=== PATIENT | female | born 2000 | race Caucasian/White ===

== ENCOUNTER 2022-03-14 09:52 | Emergency (ER) | payer OTHER, SELFPAY ==
[2022-03-14 10:05] VITALS: BP 107/63; PULSE 100; RESP 20; TEMP 36.6; O2SAT 99
--- NOTE | 2022-03-14 10:20 | ED.URI ---
HPI - URI/Sore Throat General Chief Complaint: Upper Respiratory Infection Stated Complaint: Sore Throat,Bilateral Ear Irritation,Rt Eye Irrita Time Seen by Provider: 03/14/22 10:09 Source: patient Mode of arrival: ambulatory Limitations: no limitations History of Present Illness HPI Narrative: Patient presents today complaining of a 2 day history of bilateral ear pain left greater than right, congestion COVID postnasal drip, cough, five-day history of sore throat, and right eye redness with green drainage since last night. Denies fever. She has been taking Tylenol and Mucinex without relief. 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 She is currently 6 months . Related Data Home Medications Medication Instructions Recorded Confirmed vits no.[id number]-ferrous fum 1 tablet PO DAILY 03/14/22 03/14/22 28 mg iron-folic acid 800 mcg tablet (Classic ) Allergies Allergy/AdvReac Type Severity Reaction Status Date / Time No Known Allergies Allergy Verified 03/14/22 09:55 Review of Systems Review of Systems: CONSTITUTIONAL: Denies body aches, fever, chills, or sweats. EYES: Denies visual changes. + right eye redness and drainage ENT: Denies rhinorrhea. + congestion, sore throat, bilateral ear pain CARDIOVASCULAR: Denies chest pain, palpitations, or edema. RESPIRATORY: Denies dyspnea.+ cough GASTROINTESTINAL: Denies abdominal pain, nausea, vomiting, or diarrhea. GENITOURINARY: Denies dysuria or hematuria. SKIN: Denies rash, itching, or wounds. MUSCULOSKELETAL: Denies back pain, joint pain, or myalgia. NEUROLOGIC: Denies headache, numbness, tingling, or weakness. PSYCH: Denies depression or anxiety. PMFSH Comments At time of signature, I have reviewed and agree with nursing past medical, surgical, social and family history unless otherwise noted. Please see nursing chart for further information. There is no relevant family history pertinent to the presenting complaint Exam Narrative: GENERAL: Well-appearing, well-nourished, and in no acute distress. HEAD: Normocephalic, atraumatic. EYES: EOMI. PERRL. Right eye redness and injected conjunctiva with increased tearing. No active purulent discharge. Slight swelling of the upper eyelid. Left eye normal. ENT: Mucous membranes pink and moist. Nares congested. No rhinorrhea. TMs normal bilaterally. Throat normal. Uvula midline. NECK: Normal AROM. Supple. No lymphadenopathy. CHEST: No respiratory distress. Clear to auscultation. HEART: Regular rate and rhythm. No murmur appreciated. Normal peripheral pulses. ABDOMEN: Gravid abdomen MUSCULOSKELETAL: No bony tenderness. EXTREMITIES: Normal range of motion. No edema. SKIN: Warm, dry, no rash. Capillary refill normal. Normal skin turgor. NEURO: No focal deficits. Alert and oriented x3. Gait steady. PSYCH: Normal affect. No signs of depression or anxiety. Course Course Level of Care: Express Care Visit Vital Signs Vital signs: Vital Signs Temperature 97.8 F 03/14/22 10:05 Pulse Rate 100 03/14/22 10:05 Respiratory Rate 20 03/14/22 10:05 Blood Pressure 107/63 03/14/22 10:05 Pulse Oximetry 99 03/14/22 10:05 Oxygen Delivery Room Air 03/14/22 10:05 Temperature 97.8 F 03/14/22 10:05 Pulse Rate 100 03/14/22 10:05 Respiratory Rate 20 03/14/22 10:05 Blood Pressure 107/63 03/14/22 10:05 Pulse Oximetry 99 03/14/22 10:05 Oxygen Delivery Room Air 03/14/22 10:05 Reviewed MDM - URI/Sore Throat MDM Narrative Medical decision making narrative: Will treat patient for bacterial conjunctivitis. Remainder of symptoms are likely viral. Differential Diagnosis Differential diagnosis: Likely upper respiratory infection, otitis media, viral infection, bronchitis and other (Conjunctivitis) Critical Care Time Critical Care Time Critical Care Time: No Discharge Plan Discharge Clinical Impression: Acute bacterial conjunctivitis of right eye
== END 2022-03-14 10:28 | disposition home or self-care (01) ==
PROVIDERS: Emergency Provider Nurse Practitioner
DX: O99.891 Other specified diseases and conditions complicating pregnancy (principal); Z3A.00 Weeks of gestation of pregnancy not specified; H10.31 Unspecified acute conjunctivitis, right eye; O99.512 Diseases of the respiratory system complicating pregnancy, second trimester; Z3A.24 24 weeks gestation of pregnancy; J06.9 Acute upper respiratory infection, unspecified
CPT/HCPCS: 99213; G0463

== ENCOUNTER 2024-02-15 13:38 | Emergency (ER) | payer OTHER, SELFPAY ==
[2024-02-15 13:55] VITALS: BP 113/69; PULSE 97; RESP 18; TEMP 36.7; O2SAT 100
[2024-02-15 14:09] LABS: EDUAAPPEAR Cloudy; EDUABILI Negative (Negative); EDUABLOOD 3+ (Negative); EDUACOLOR1 Orange; EDUAGLUCOSE Trace (Negative); EDUAKETONE Negative (Negative); EDUALEUKO 3+ (Negative); EDUANITRATE Positive (Negative); EDUAPROTEIN 3+ (Negative); EDUASPGRAVITY 1.015
--- NOTE | 2024-02-15 14:18 | ED.FEMALEGU ---
HPI - Female Genitourinary General Chief complaint: Urogenital-Female Stated complaint: uti/body aches/ blood in urine Time Seen by Provider: 02/15/24 14:18 Source: patient, RN notes reviewed and old records reviewed Mode of arrival: ambulatory Limitations: no limitations History of Present Illness HPI Narrative: patient presents with complaints of dysuria, hematuria, body aches. She reports that symptoms were present upon awakening this morning. She has been taking azo for her symptoms with minimal relief. She denies any fever, chills, sweats. She denies any injury or trauma. She voices no other concerns or complaints Related Data Allergies Allergy/AdvReac Type Severity Reaction Status Date / Time No Known Allergies Allergy Verified 02/15/24 14:05 Review of Systems Review of Systems: All systems reviewed & are unremarkable except as noted in HPI and below Constitutional: Constitutional: Reports no additional constitutional complaints and Reports body ache(s) ENT: Reports system reviewed and no additional complaints, except as documented Cardiovascular: Cardiovascular: Reports no additional cardiovascular complaints Respiratory: Respiratory: Reports no additional respiratory complaints Gastrointestinal: Gastrointestinal: Reports no additional gastrointestinal complaints Genitourinary: Genitourinary: Reports hematuria and Reports urinary urgency PMFSH Comments At the time of my signature, I reviewed and agree with the nursing past medical, surgical, social, and family history. There is no relevant family history pertinent to the patient complaint. Exam Const: General: cooperative, no acute distress, alert and awake Orientation/consciousness: oriented to person, oriented to place and oriented to time HENMT: Head: normal to inspection Resp: Effort & Inspection: normal respiratory effort and able to speak in complete sentences Auscultation: clear to auscultation bilaterally, no crackles, no rales, no rhonchi and no wheezes Cardio: Palpation: normal PMI Rate: regular rate Rhythm: regular rhythm Heart sounds: S1 normal heart sound present and S2 normal heart sound present : General: Yes no CVA tenderness Neuro: General: oriented to person, oriented to place and oriented to time Cranial nerves: Yes CN's II-XII intact bilaterally Psych: Appearance: grossly normal Thought process: Normal thought process present Insight: Good insight present (Psych) Judgement: Good judgement present (Psych) Course Course Level of Care: Express Care Visit Vital Signs Vital signs: Vital Signs Temperature 98.1 F 02/15/24 13:55 Pulse Rate 97 02/15/24 13:55 Respiratory Rate 18 02/15/24 13:55 Blood Pressure 113/69 02/15/24 13:55 Pulse Oximetry 100 02/15/24 13:55 Oxygen Delivery Room Air 02/15/24 13:55 Temperature 98.1 F 02/15/24 13:55 Pulse Rate 97 02/15/24 13:55 Respiratory Rate 18 02/15/24 13:55 Blood Pressure 113/69 02/15/24 13:55 Pulse Oximetry 100 02/15/24 13:55 Oxygen Delivery Room Air 02/15/24 13:55 Reviewed MDM - Female Genitourinary MDM Narrative Medical decision making narrative: history, exam, labs consistent with UTI. Culture pending. Start Macrobid. Patient nontoxic appearing, stable for discharge home on p.o. antibiotic therapy. Discharge instructions reviewed with patient, as well as provided in writing per nursing staff. The instructions also include specific and strict return/GO TO THE ER as well as f/u information. All questions have been answered, and the patient deny any further questions with discharge and discharge plan. Some parts of this dictation were generated by voice recognition software and may contain typographical and/or grammatical inaccuracies. Differential Diagnosis Differential diagnosis: Likely urinary tract infection and other (Cystitis, dysuria) Medical Records Attestation: I reviewed the patient's medical records. Lab Data Attestation: I reviewed the patient's lab results. Labs: Lab Results 02/15/24 Range/Units 14:07 POC Urine Color [place] POC Urine Clarity Cloudy POC Urine pH 6.0 POC Ur Specif [place] 1.015 POC Urine Protein 3+ (Negative) POC Ur Glucose (UA) Trace (Negative) POC Urine Ketones Negative (Negative) POC Urine Blood 3+ (Negative) POC Urine Nitrite Positive (Negative) POC Urine Bilirubin Negative (Negative) POC Urine Urobilinogen 1.0 POC U Leukocyte Esteras 3+ (Negative) Discharge Plan Discharge Clinical Impression: Urinary tract infection Qualifiers: Urinary tract infection type: site unspecified Hematuria presence: with hematuria Qualified Code(s): N39.0 - Urinary tract infection, site not specified Patient Disposition: Home, Self-Care Condition: Stable Instructions: Antibiotic Form, Urinary Tract Infection in Women (ED) Additional Instructions: take medications as prescribed. Follow with primary care provider. Emergency department for new or worse symptoms Patient Language: Emirati Prescriptions: New nitrofurantoin monohyd/m-cryst [Macrobid] 100 mg capsule 100 mg PO Q12H 5 Days Qty: 10 0RF Rx Instructions: must administer with a meal/food Follow-up/Referrals: PHYSICIAN,CHIEF OF HARBOR PATROL [Primary Care Provider] - Time of Disposition: 14:24
== END 2024-02-15 14:29 | disposition home or self-care (01) ==
PROVIDERS: Emergency Provider Nurse Practitioner Family; Referring Provider Family Medicine
DX: N39.0 Urinary tract infection, site not specified (principal)
CPT/HCPCS: 81003; 87077; 87086; 87186; 99213; G0463

== ENCOUNTER 2024-06-23 09:48 | Emergency (ER) | payer OTHER, SELFPAY ==
--- OUTSIDE RECORDS SUMMARY | 2024-06-23 09:51 | XMS_ITS | Clinical Summary ---
Author Organization [facility] Address [address] [place] [address] Phone Care Team Providers Care Foreign Food Cook Specialty Name Role Phone Maeve Madden MD Primary Care Provider Unava ilable Allergies No known active allergies Medications vit-iron fumarate-fa (CAROLINE ) 28 mg iron- 800 mcg Tablet TAKE 1 TABLET BY MOUTH ONCE DAILY 10/24/2019 Active cyclobenzaprine (FLEXERIL) 5 mg Tablet Take 1 Tablet (5 mg) by mouth daily. 5 Tablet 04/17/2023 10:49 AM SOX ANALYST 04/17/2023 Active Active Problems Problem Noted Date Diagnosed Date contractions 09/01/2023 growth restriction antepartum 05/17/2023 Supervision of high-risk , second trime ster 05/17/2023 Abdominal pain during in second trimes ter 04/17/2023 Vaginitis during in second trimester 0 04/17/2023 [facility] 09/10 - Licha Cordova - 06/20/2022 Influenza A 01/15/2022 Nausea/vomiting in 01/15/2022 Ocular migraine Resolved Problems Problem Noted Date Diagnosed Date Resolved Date Elevated blood pressure affe cting in third trimester, antepartum Threatened labor at term Encounters Date Type Department Care Team Description 06/11/2024 External Device Data [facility] Provider, Abstract 04/10/2024 External Device Data [facility] Provider, Abstract from Last 3 Months Immunizations Immunization Administration Dates Next Due (ADACEL/BOOSTRIX)(10 YR UP) TDAP VACCINE, 0.5ML, IM 05/05/2022,10/10/2020 Family History Medical History Relation Name Comments Diabetes Father Healthy Mother Healthy Son 1 Healthy Son 2 Relation Name Status Comments Father Alive Mother Alive Son 1 Alive Son 2 Alive Social History Tobacco Use Types Packs/Day Years Used Date Smoking Tobacco: Never Smokeless Tobacco: Never Tobacco Cessation:Counseling Given: Not Answered Alcohol Use Standard Drinks/Week Comments Not Currently 0 (1 standard drink = 0.6 oz pur e alcohol) Feeling Safe Answer Date Recorded Within the last year, have y ou been afraid of your partner or ex-partner? No 12/15/2021 Within the last year, have y ou been humiliated or emotionally abused in other ways by your partner or ex-partner? No Within the last year, have y ou been kicked, hit, slapped, or otherwise physically hurt by your partner or ex-partner? No 12/15/2021 Within the last year, have y ou been raped or forced to have any kind of sexual activity by your partner or ex-partner? No 12/15/2021 Social Connections Answer Date Recorded In a typical week, how many times do you talk on the telephone with family, friends, or neighbors? Not on file 12/16/19 How often do you get together with friends or re latives? Not on file 12/15/2021 How often do you attend pentecostal or mosque serv ices? Never 12/15/2021 Do you belong to any clubs o r organizations such as pentecostal groups, unions, fraternal or athletic groups, or school groups? No 12/15/2021 How often do you attend meet ings of the clubs or organizations you belong to? Never 12/15/2021 Are you , , di vorced, , never , or living with a partner? 12/15/2021 Food Insecurity Answer Date Recorded In the past 12 months, have you worried that your food would run out before you had money to buy more? Never true 12/15/2021 In the past 12 months, did y ou run out of food and didn't have money to buy more? Never true 12/15/2021 Transportation Needs Answer Date Record ed In the past 12 months, has l ack of transportation kept you from medical appointments or from getting medications? Yes 11/21 In the past 12 months, has l ack of transportation kept you from meetings, work, or from getting things needed for daily living? Yes 12/15/2021 Housing Stability Answer Date Recorded In the last 12 months, was t here a time when you were not able to pay the mortgage or rent on time? No 12/15/2021 (RETIRED) In the last 12 months, how many places have you lived? 1 12/15/2021 (RETIRED) In the last 12 mon ths, was there a time when you did not have a steady place to sleep or slept in a [place] [facility] [place] (including now)? No 12/15/2021 Feeling Safe Answer Date Recorded Are you in a relationship wi th someone who hurts you emotionally and/or physically? Patient unable to answer 09/11/2023 Comments No Sex and Gender Information Value Date Recorded Sex Assigned at Female 02/07/2023 11:19 AM SOX ANALYST Legal Sex Female 2:10 PM CDT Gender Identity Female 02/07/2023 11:19 AM SOX ANALYST Sexual Orientation Not on file Last Filed Vital Signs Vital Sign Reading Time Taken Comments Blood Pressure 114/66 10/30/2023 2:14 PM CDT Pulse 72 09/14/2023 6:33 AM CDT Temperature 36.6 C (97.8 F) 09/14/2023 6:33 AM CDT Respiratory Rate 18 09/14/2023 6:33 AM CDT Oxygen Saturation 98% 09/11/2023 8:40 PM CDT Inhaled Oxygen Concentration - - Weight 70.2 kg (154 lb 12.8 oz) 10/30/2023 2:14 PM CDT Height 160 cm (5' 3 ) 09/11/2023 9:59 AM CDT Body Mass Index 27.42 09/11/2023 9:59 AM CDT Plan of Treatment Health Maintenance Due Date Last Done Comments HPV VACCINES (1 - 3-dose series) 2013 HEPATITIS B VACCINES (1 of 3 - 19+ 3-dose series) 2017 HPV/Cotest (21-29) 07/07/2019 INFLUENZA VACCINE (#1) 2023 CERVICAL CANCER SCREENING 02/16/2024 PAP SMEAR 02/16/2024 02/15/2021 DTAP/TDAP/TD VACCINES (3 - T d or Tdap) 05/05/2032 05/05/2022, 10/10/2020 CHLAMYDIA SCREENING (ANNUAL) 11-24 YEARS Discontinued 08/14/2023, 11/29/2021, 02/27/2020 Procedures Procedure Name Priority Date/Time Associated Diagnosis Comments GC/CHLAMYDIA, UROGENITAL Stat 08/14/2023 11:41 AM CDT CERV/VAG CYTO AGE BASED SCREEN PAP W CT/NG, TRICH Routine 02/15/2021 1:35 PM SOX ANALYST Screening for cervical cancer STD exposure from Last 3 Months or Most Recently Relevant to Health Maintenance Results * GC/CHLAMYDIA, UROGENITAL (08/14/2023 11:41 AM CDT) CHLAMYDIA DNA AMPLIFICATION NOT DETECTED Not Detected 08/14/2023 1:45 PM CDT [facility] [place] GC DNA AMPLIFICATION NOT DETECTED Not Detected 08/14/2023 1:45 PM CDT [facility] [employer] [facility] [place] Genital SPECIMEN FROM VAGINA / Unknown Collection / Unknown 08/14/2023 11:41 AM CDT 08/14/2023 11:57 AM CDT Narrative [facility] - 08/14/2023 1:45 PM CDT Results should not be used for the evaluation of suspected sexual abuse or for other medico-legal indications. The only legally accepted results are from culture. Results cannot be used to assess therapeutic success or failure since nucleic acids may persist following antimicrobial therapy. Boyd Bautista MD MICROBIOLOGY - GENERAL ORDER JUANIS Final Result [facility] CLIA# [id number] [address] [address] * CERV/VAG CYTO AGE BASED SCREEN PAP W CT/NG, TRICH (02/15/2021 1:35 PM SOX ANALYST) SEE NOTE [facility] Comment: This order for age-based cervical cancer and STI screening follows ACOG guidelines(PB 168, 140, ECB347). See individual assays for performing site location. CLINICAL INFORMATION [facility] Comment:Information not prov ided LAST MENSTRUAL PERIOD [facility] Comment:INFORMATION NOT PROV IDED PREV PAP: [facility] Comment:INFORMATION NOT PROV IDED PREV BX: [facility] Comment:INFORMATION NOT PROV IDED SOURCE [facility] Comment:Endocervix ADEQUACY: [facility] Comment: Satisfactory for evaluation. Endocervical/transformation zone component present. Age and/or menstrual status not provided PAP INTERP [facility] Comment:Negative for intraep ithelial lesion or malignancy. COMMENT (PAP TEST) [facility] [address] Comment: This Pap test has been evaluated with computer assisted technology. QUALITY CONTROL SYSTEMS MANAGER: [facility] [address] Comment: MMW, CT(ASCP) CT screening location: [place] [address] [place] [address] SEE NOTE [facility] [address] Comment: EXPLANATORY NOTE: The Pap is a screening test for cervical cancer. It is not a diagnostic test and is subject to false negative and false positive results. It is most reliable when a satisfactory sample, regularly obtained, is submitted with relevant clinical findings and history, and when the Pap result is evaluated along with historic and current clinical information. C TRAC RNA NOT DETECTED NOT DETECTED [facility] [address] N.GONORRHOEAE RNA, TMA NOT DETECTED NOT DETECTED [facility] [address] SEE NOTE [facility] [address] Comment: The analytical performance characteristics of this assay, when used to test SurePath(TM) specimens have been determined by [employer]. The modifications have not been cleared or approved by the FDA. This assay has been validated pursuant to the CLIA regulations and is used for clinical purposes. For additional information, please refer to https://[email or web address].AmericanTowns.com/faq/EVP351 (This link is being provided for information/ educational purposes only.) TRICHOMONAS VAGINALIS,QUALITAT PATTIE,PAP VIAL NOT DETECTED NOT DETECTED [facility] [address] Comment: The analytical performance characteristics of this assay have been determined by [employer]. The modifications have not been cleared or approved by the FDA. This assay has been validated pursuant to the CLIA regulations and is used for clinical purposes. For additional information, please refer to http://[employer].SnappyTV/ faq/Trichomonastma (This link is being provided for information/ educational purposes only.) Test Performed at: [facility] [address] [facility] [place] [address] Sree Villagran D.O., MPH SL Genital SWAB OF ENDOCERVIX / Unknown 02/15/2021 1:35 PM SOX ANALYST 02/16/2021 6:13 AM SOX ANALYST us Boyd Bautista MD PATHOLOGY/CYTOLOGY ORDERABLE S Final Result [facility] [address] [place] [address] from Last 3 Months or Most Recently Relevant to Health Maintenance Insurance RX [employer] Medicaid RX [facility] [employer] (INTERNAL) [facility] [employer] PLUS [id number] [id number] Advance Directives For more information, please contact: [phone] * Full Code (Latest Code Status on File) Date Activated Date Inactivated Comments 09/01/2023 5:42 PM 09/01/2023 8:52 PM * Full Code Date Activated Date Inactivated Comments 04/17/2023 9:03 AM 04/17/2023 12:57 PM * Full Code Date Activated Date Inactivated Comments 06/19/2022 9:31 AM 06/21/2022 12:55 PM * Full Code Date Activated Date Inactivated Comments 06/19/2022 4:08 AM 06/19/2022 9:31 AM * Full Code Date Activated Date Inactivated Comments 05/12/2022 4:46 PM 05/12/2022 8:24 PM Care Teams Foreign Food Cook Specialty Relationship Specialty Start Date End Date Maeve Madden MD PCP - General Pediatrics 12/02/19
[2024-06-23 10:04] VITALS: BP 107/70; PULSE 86; RESP 16; TEMP 36.6; O2SAT 99
--- NOTE | 2024-06-23 10:32 | ED.URI ---
HPI - URI/Sore Throat General Chief Complaint: Upper Respiratory Infection Stated Complaint: throat swollen, ears hurts, vomiting, diarrhea Time Seen by Provider: 06/23/24 10:25 Source: patient, family and RN notes reviewed Mode of arrival: ambulatory Limitations: no limitations History of Present Illness HPI Narrative: 23-year-old female presents to the [facility] complaining of upper respiratory symptoms for 2 days. Patient said her son was sick on Monday and then she develops symptoms as well. She reports having a sore throat, throat swelling, voice hoarseness, cough, right ear pain, nausea, and vomiting. Patient has not vomited today. Patient is able to keep fluids down. Patient denies any abdominal pain, chest pain, shortness of breath, difficulty swallowing, excessive drooling, fevers, body aches, chills. Related Data Allergies Allergy/AdvReac Type Severity Reaction Status Date / Time No Known Allergies Allergy Verified 06/23/24 10:18 Review of Systems Review of Systems: CONSTITUTIONAL: Denies fever, chills, or sweats. EYES: Denies visual changes, redness, or discharge. ENT: Denies rhinorrhea, excessive drooling, difficulty swallowing. Positive for congestion, sore throat, voice hoarseness, otalgia. CARDIOVASCULAR: Denies chest pain, palpitations, or edema. RESPIRATORY: Positive for cough. Negative for dyspnea. GASTROINTESTINAL: Denies abdominal pain or diarrhea. Positive for nausea and vomiting. GENITOURINARY: Denies dysuria or hematuria. SKIN: Denies rash or itching. MUSCULOSKELETAL: Denies back pain, joint pain, or myalgia. NEUROLOGIC: Denies headache, numbness, or weakness. PSYCHIATRIC: Denies anxiety or depression. All other systems reviewed are negative, except as documented in HPI. PMFSH Comments At the time of my signature, I reviewed and agree with the nursing past medical, surgical, social, and family history. There is no relevant family history pertinent to the patient complaint. Exam Narrative: GENERAL: This is a well-nourished, well-developed adult, in no apparent distress. They are non ill-appearing, nontoxic appearing. HEAD: normocephalic, atraumatic. EYES: Sclera clear/white. Conjunctiva normal. Vision is grossly intact. Extraocular movements intact EARS: External ears normal, auditory canals clear and without drainage, TMs normal without perforation. Hearing grossly intact. NOSE: External nose normal with no obvious nasal discharge, nasal turbinates are erythematous bilaterally, no rhinorrhea. THROAT: Mucous membranes moist, posterior pharynx erythematous. No exudate. Postnasal drip present. Uvula midline. NECK: Neck supple, non-tender without lymphadenopathy, masses or thyromegaly. CARDIOVASCULAR: Regular rate and rhythm without murmurs, gallops, or rubs. RESPIRATORY: Clear to auscultation. Breath sounds equal bilaterally. No wheezes, rales, or rhonchi. GASTROINTESTINAL: Abdomen soft, non-tender, nondistended. Bowel sounds are active. No hepato-splenomegaly, or palpable masses. No guarding. SKIN: warm, Dry, intact with no suspicious lesions or rash, good texture and turgor. NEURO: awake, alert, and oriented to person, place and time. There were no obvious focal neurologic abnormalities. EXTREMITIES: No joint tenderness, effusion, or edema noted. BACK: Nontender without deformity. No CVA tenderness. Course Course Emergency Course: Portions of this record may have been created with voice recognition software Level of Care: Express Care Visit Vital Signs Vital signs: Vital Signs Temperature 97.8 F 06/23/24 10:04 Pulse Rate 86 06/23/24 10:04 Respiratory Rate 16 06/23/24 10:04 Blood Pressure 107/70 06/23/24 10:04 Pulse Oximetry 99 06/23/24 10:04 Oxygen Delivery Room Air 06/23/24 10:04 Temperature 97.8 F 06/23/24 10:04 Pulse Rate 86 06/23/24 10:04 Respiratory Rate 16 06/23/24 10:04 Blood Pressure 107/70 06/23/24 10:04 Pulse Oximetry 99 06/23/24 10:04 Oxygen Delivery Room Air 06/23/24 10:04 Reviewed MDM - URI/Sore Throat MDM Narrative Medical decision making narrative: Rapid flu and strep were negative. Culture pending. Patient does not appear dehydrated. Prescribe Zofran as needed for nausea and vomiting. Discussed physical exam findings. Advised supportive measures and signs/symptoms to go to the ER. Pt is appropriate for outpt treatment and f/u. Differential Diagnosis Differential diagnosis: Likely upper respiratory infection, viral infection and bronchitis Lab Data Attestation: I reviewed the patient's lab results. Critical Care Time Critical Care Time Critical Care Time: No Discharge Plan Discharge Clinical Impression: Viral illness Patient Disposition: Home Condition: Stable Instructions: Viral Syndrome (ED) Additional Instructions: Your rapid flu was negative and rapid strep swab was negative today at [facility]. You will be notified in a few days if the culture comes back positive for strep, and appropriate antibiotics will be called in for you at that time. Your symptoms are likely due to a viral illness, which is not treated with antibiotics. Viral symptoms can be present for up to 10-14 days. Please take steroids as directed. Take it in the morning and take with food. Take Zofran as needed for nausea and vomiting. Take Tylenol or ibuprofen for fever or pain. Rest and stay hydrated. Follow up with your PCP in 3-5 days if symptoms are not improving. Go to the ER immediately if you develop difficulty breathing or swallowing, uncontrollable nausea and vomiting, dehydration, or any other concerns. Patient Language: Danish Prescriptions: New prednisone 20 mg tablet 20 mg PO DAILY 5 Days Qty: 5 0RF ondansetron 4 mg tablet,disintegrating 4 mg PO Q8H PRN (Reason: nausea and vomiting) Qty: 12 0RF Follow-up/Referrals: PHYSICIAN,[employer]BI[employer]OUN[employer]IVER OR OPERATOR [Primary Care Provider] - Stand Alone Forms: Work/School Release IP Time of Disposition: 10:56
[2024-06-24 11:57] LABS: EDINFLUASCREEN Negative (Negative); EDINFLUBSCREEN Negative (Negative); EDSTREPNEGPOS1 Negative (Negative)
== END 2024-06-23 11:03 | disposition home or self-care (01) ==
DX: B34.9 Viral infection, unspecified (principal)
CPT/HCPCS: 87081; 87804; 87880; 99213; G0463